=== PATIENT | male | born 1975 | race Two or more races ===

== ENCOUNTER 2019-09-21 17:28 | Emergency (ER) | payer MEDICAID ==
[~2019-09-21] VITALS: Ht 165.1 cm; Wt 68.9 kg
--- NOTE | 2019-09-21 17:42 | NUR ---
brenda, from [facility], sent by PMD for GT replacement, F14. PT IS NONVERBAL AND AT HIS BASELINE, PER EMS. SKIN WARM, DRY, INTACT. NO ACUTE DISTRESS NOTED. RR EVEN AND UNLABORED ON RA. MADE COMFORTABLE AND READY FOR EVAL.
[2019-09-21] MEDS ORDERED: BISA10SU11 RC (18:14)
[2019-09-21] MEDS ORDERED: ATOR20TA GT (18:14)
[2019-09-21] MEDS ORDERED: MAGN24002 GT (18:14)
[2019-09-21] MEDS ORDERED: ASCO500T9 GT (18:14)
[2019-09-21] MEDS ORDERED: ASPI-605 GT (18:14)
[2019-09-21] MEDS ORDERED: LEVE100S GT (18:14)
[2019-09-21] MEDS ORDERED: OMEP20CA15 GT (18:14)
[2019-09-21] MEDS ORDERED: ACET325T53 GT (18:14)
[2019-09-21] MEDS ORDERED: SENN-168 GT (18:14)
[2019-09-21] MEDS ORDERED: POTA20PA3 GT (18:14)
[2019-09-21] MEDS ORDERED: NA P133E RC (18:14)
[2019-09-21] MEDS ORDERED: [UNRECOGNIZED DRUG - CODE] GT (18:14)
[2019-09-21] MEDS ORDERED: MULT1TAB73 GT (18:14)
[2019-09-21] MEDS ORDERED: ENOX40DI SQ (18:14)
[2019-09-21] MEDS ORDERED: CRAN3875 GT (18:14)
--- NOTE | 2019-09-21 19:32 | NUR ---
PT RESTING COMFORTABLY IN BED. NO ACUTE DISTRESS NOTED. VSS. WILL CONT TO MONITOR.
[2019-09-21] MEDS ORDERED: DIATR MEGLU/DIATRIZOATE SODIUM 30 ML BOTTLE (GASTROGRAPHIN) ONE (19:49)
--- NOTE | 2019-09-21 21:17 | NUR ---
PT UP FOR DISCHARGE. WILL CALL FOR TRANSPORT
--- NOTE | 2019-09-21 21:24 | NUR ---
CALLED STEVE FOR S TRANSPORT TO [facility] ETA [id number]
--- NOTE | 2019-09-21 21:54 | NUR ---
REPORT GIVEN TO [facility][id number]. NOTIFIED FACILITY OF TRANSPORT
[2019-09-21 21:58] VITALS: BP 108/68
== END 2019-09-21 21:58 ==
LOC: ER 17:30
DX: K94.23 Gastrostomy malfunction (principal); R13.10 Dysphagia, unspecified; G40.909 Epilepsy, unspecified, not intractable, without status epilepticus; K21.9 Gastro-esophageal reflux disease without esophagitis; Z79.82 Long term (current) use of aspirin; Z79.899 Other long term (current) drug therapy
CPT/HCPCS: 43762; 74018; 99285; Q9963

== ENCOUNTER 2021-01-21 11:16 | Inpatient (IN) | payer BC, MEDICAID ==
[~2021-01-21] VITALS: Ht 172.7 cm; Wt 63.0 kg
[~2021-01-21 11:16] MED LIST: ACET325T53 GT; ASCO-352 GT; ASPI-605 GT; ATOR20TA GT; BISA10SU11 RC; CRAN3875 GT; ENOX40DI SQ; LEVE100S GT; MAGN24002 GT; MULT-754 GT; NA P133E RC; OMEP20CA15 GT; POTA20PA3 GT; SENN-261 GT; [UNRECOGNIZED DRUG - CODE] GT
--- NOTE | 2021-01-21 11:36 | NUR ---
JULIEN FROM [facility] C/O L HIP AND L ELBOW PAIN/LAC. S/P UNWITNESSED FALL. THE PATIENT RATES PAIN 10/10. NO APPARENT DEFORMITY NOTED. IN ROOM AIR AND DENIES SOB. RESPIRATION REGULAR AND UNLABORED. WILL CONTINUE TO MONITOR THE PATIENT.
[2021-01-21] MEDS ORDERED: ACET-2605 GT (11:44)
[2021-01-21] MEDS ORDERED: LANS30CA54 GT (11:44)
[2021-01-21] MEDS ORDERED: DOCU-141 GT (11:44)
[2021-01-21] MEDS ORDERED: CRAN3875 GT (11:44)
[2021-01-21] MEDS ORDERED: LACT-209 GT (11:46)
--- NOTE | 2021-01-21 11:58 | NUR ---
the patient is taken to ct
--- NOTE | 2021-01-21 12:15 | NUR ---
the patient is back from ct
[2021-01-21 13:36] LABS: BASOPHILS % (AUTO) 0.3 % (0.0-2.0); EOSINOPHILS % (AUTO) 0.1 % (0.0-6.0); HEMATOCRIT 38 % (39-51); HEMOGLOBIN 13.1 g/dL (13.5-17.5); LYMPHOCYTES # (AUTO) 0.8 K/uL (0.8-4.8); LYMPHOCYTES % (AUTO) 7.9 % (20.0-44.0); MEAN CORPUSCULAR HGB CONC 34 g/dl (31.0-36.0); MEAN CORPUSCULAR VOLUME 94 fL (80-96); MONOCYTES # (AUTO) 0.6 K/uL (0.1-1.30); MONOCYTES % (AUTO) 6.2 % (2.0-12.0); NEUTROPHILS # (AUTO) 8.8 K/uL (1.8-8.9); NEUTROPHILS % (AUTO) 85.5 % (43.0-81.0); PLATELET COUNT (AUTO) 109 K/uL (150-450); RED BLOOD CELL COUNT(AUTO) 4.05 MIL/uL (4.5-6.0); WHITE BLOOD COUNT (AUTO) 10.4 K/uL (4.3-11.0)
[2021-01-21 13:45] LABS: CALCIUM, SERUM 9.1 mg/dL (8.5-10.1); CREATININE 0.7 mg/dL (0.6-1.3)
--- NOTE | 2021-01-21 14:51 | NUR ---
BED ASSIGNMENT 105
--- NOTE | 2021-01-21 14:52 | NUR ---
Report given to nurse Andrea
--- NOTE | 2021-01-21 15:23 | NUR ---
The patient is transfered to assigned room in stable condition and per policy.
[2021-01-21] MEDS ORDERED: JEVITY 1.2 CAL 1,000 ML BOTTLE GT SCH (15:30)
[2021-01-21] MEDS ORDERED: ONDANSETRON HCL/PF 4 MG/2 ML VIAL IVP PRN (15:30)
[2021-01-21] MEDS ORDERED: MORPHINE SULFATE INJ 2 MG/ML DISP.SYRIN IV PRN (15:30)
[2021-01-21] MEDS ORDERED: BISACODYL SUPP (10 MG) 10 MG/SUPP.RECT SUPP.RECT RC PRN (15:30)
[2021-01-21] MEDS ORDERED: ACETAMINOPHEN 650 MG/SUPP.RECT RC PRN (15:30)
[2021-01-21] MEDS: PANTOPRAZOLE 40 MG VIAL IV SCH (15:30)
[2021-01-21] MEDS ORDERED: Z GUARD REMEDY 2 OZ OINT TP PRN (15:30)
[2021-01-21] MEDS: ENOXAPARIN SODIUM 40 MG/0.4 ML DISP.SYRIN SQ SCH (16:00)
[2021-01-21] MEDS ORDERED: LEVETIRACETAM (500MG) 1,000 MG in IV NS 0.9% 100 ML IV SCH (16:00)
[2021-01-21] MEDS ORDERED: JEVITY 1.2 CAL 1,000 ML BOTTLE GT PRN (19:30)
[2021-01-21] MEDS: KEPPRA 1000 MG in IV NS 100 ML IV SCH (19:48)
--- NOTE | 2021-01-21 19:49 | NUR ---
MS RN Notes Patient was seen awake in bed resting. Patient is alert and oriented x1. Patient's on room air with no respiratory distress noted. Patient has an IV access on his right hand gauge #20. Patient's in no acute distress at this time. Safety measures in place: Bed locked, bed alarm on, side rails up X3, and call light within reach of the patient. Will continue to monitor the patient.
[2021-01-21 20:00] VITALS: BP 101/62
[2021-01-21] MEDS: ATORVASTATIN 10 MG TABLET GT SCH (21:08)
[2021-01-22] MEDS: IV D5/ 0.9% NACL 1,000 ML IV PRN ×2 (00:20→12:39)
[2021-01-22 06:32] LABS: BASOPHILS % (AUTO) 0.3 % (0.0-2.0); EOSINOPHILS % (AUTO) 1.5 % (0.0-6.0); HEMATOCRIT 36 % (39-51); HEMOGLOBIN 12.5 g/dL (13.5-17.5); LYMPHOCYTES # (AUTO) 1.4 K/uL (0.8-4.8); MEAN CORPUSCULAR HGB CONC 35 g/dl (31.0-36.0); MEAN CORPUSCULAR VOLUME 93 fL (80-96); MONOCYTES # (AUTO) 0.8 K/uL (0.1-1.30); NEUTROPHILS # (AUTO) 4.8 K/uL (1.8-8.9); NEUTROPHILS % (AUTO) 67.2 % (43.0-81.0); PLATELET COUNT (AUTO) 97 K/uL (150-450); WHITE BLOOD COUNT (AUTO) 7.1 K/uL (4.3-11.0)
[2021-01-22 06:47] LABS: THYROID STIMULATING HORMONE 1.153 uIU/mL (0.358-3.74)
[2021-01-22 06:49] LABS: CALCIUM, SERUM 8.9 mg/dL (8.5-10.1); CREATININE 0.6 mg/dL (0.6-1.3); PHOSPHORUS 2.8 mg/dL (2.5-4.9); POTASSIUM 3.6 mmol/L (3.5-5.1)
--- NOTE | 2021-01-22 07:02 | NUR ---
MS RN Notes Patient was seen awake in bed resting. Patient is alert and oriented x1. Patient's on room air with no respiratory distress noted. Patient has an IV access on his left hand gauge #22 which is currently running D5NS at 75ml/hr. Patient's in no acute distress at this time. Safety measures in place: Bed locked, bed alarm on, side rails up X3, bilateral soft wrist restraints applied to the patient's wrists, and call light within reach of the patient. Will endorse care to the day shift nurse.
--- NOTE | 2021-01-22 07:52 | NUR ---
RN NOTES RECEIVED PT RESTING , ASLEEP IN BED WITH NO SIGNS OF ANY ACUTE DISTRESS. HOB KEPT ELEVATED, ASPIRATION PRECAUTION OBSERVED. GT FEEDING WELL TOLERATED . RESTRAINTS IN PLACE; SKIN AND CIRCULATION WNL. SAFETY ENSURED, CALL LIGHT WITHIN REACH. IV ACCESS IN PLACE WITH FLUIDS INFUSING.
[2021-01-22 08:00] VITALS: BP 99/64
[2021-01-22] MEDS: DOCUSATE SODIUM LIQ 100 MG/10 ML UDC GT SCH (08:43)
[2021-01-22] MEDS: KEPPRA 1000 MG in IV NS 100 ML IV SCH (08:43)
[2021-01-22] MEDS: PANTOPRAZOLE 40 MG VIAL IV SCH (08:43)
[2021-01-22] MEDS: ASCORBIC ACID 500 MG TABLET GT SCH (08:44)
[2021-01-22] MEDS: MULTIVITAMINS,THERAGRAN 1 UDTAB TABLET GT SCH (08:44)
[2021-01-22] MEDS: ASPIRIN 81 MG TAB.CHEW GT SCH (08:44)
--- NOTE | 2021-01-22 14:17 | NUR ---
rn notes CT order clarified with Dr Marcelino, pt will have Ct without contrast. also informed Dr Marcelino that pt is cleared by /Dr Carrasquillo and per Jose Luis pt can go to surgery without MRI done
[2021-01-22] MEDS: ENOXAPARIN SODIUM 40 MG/0.4 ML DISP.SYRIN SQ SCH (15:21)
--- NOTE | 2021-01-22 15:36 | NUR ---
rn notes lovenox scheduled dose verified with coal cutting machine operator faby and said okay to give as witnessed by charge out clerk Amy B
[2021-01-22 16:00] VITALS: BP 106/69
--- NOTE | 2021-01-22 17:55 | NUR ---
rn closing notes pt awake in bed; verbally responsive and no signs of any distress. c/o left hip discomfort only upon movement. remains on restraints for safety; released at intervals with rom done; skin and circulation wnl. repositioned for comfort and as tolerated. safety ensured at all times. gtf well tolerated. unable to reach for planned surgical consent; will endorse for f/up.
--- NOTE | 2021-01-22 19:23 | NUR ---
rn notes endorsed pt to next shift rn in stable condition, endorsed plan for surgery, consent f/up and to hold feeding at wi. skin and circulation wnl. endorsed for continuity of care
[2021-01-22] MEDS: LEVETIRACETAM SOL (5 ML) 100 MG/ML UDC GT SCH (22:10)
[2021-01-22] MEDS: ATORVASTATIN 10 MG TABLET GT SCH (22:11)
[2021-01-23] MEDS: IV D5/ 0.9% NACL 1,000 ML IV PRN ×2 (03:32→21:30)
--- NOTE | 2021-01-23 03:39 | NUR ---
patient to have surgrey today consent need to be sign patient with wrist restraints on both wrist bed in low position lite on in room patient has gt. clamped and flushed midnight. patient has lt. fx femur chest x ray done 2129 . patient alert x1 given morphine 4 mg 2211 patient to sleep after medicated. has d5ns infusing at 75 hr no signs of seizures.patient is incont. of urine. patient is covid pending.
--- NOTE | 2021-01-23 03:48 | NUR ---
patient has left femur [facility]x. [facility]
[2021-01-23 06:27] LABS: BASOPHILS % (AUTO) 0.4 % (0.0-2.0); EOSINOPHILS % (AUTO) 4.5 % (0.0-6.0); HEMATOCRIT 31 % (39-51); HEMOGLOBIN 10.9 g/dL (13.5-17.5); LYMPHOCYTES # (AUTO) 1.8 K/uL (0.8-4.8); LYMPHOCYTES % (AUTO) 28.7 % (20.0-44.0); MEAN CORPUSCULAR HGB CONC 35 g/dl (31.0-36.0); MEAN CORPUSCULAR VOLUME 95 fL (80-96); MONOCYTES # (AUTO) 0.8 K/uL (0.1-1.30); MONOCYTES % (AUTO) 13.2 % (2.0-12.0); NEUTROPHILS # (AUTO) 3.3 K/uL (1.8-8.9); NEUTROPHILS % (AUTO) 53.2 % (43.0-81.0); PLATELET COUNT (AUTO) 91 K/uL (150-450); RED BLOOD CELL COUNT(AUTO) 3.25 MIL/uL (4.5-6.0); WHITE BLOOD COUNT (AUTO) 6.1 K/uL (4.3-11.0)
[2021-01-23 07:14] LABS: CREATININE 0.6 mg/dL (0.6-1.3); POTASSIUM 3.5 mmol/L (3.5-5.1)
--- NOTE | 2021-01-23 07:35 | NUR ---
MS RN OPENING NOTES RECEIVED PATIENT IN BED, ASLEEP. PATIENT IS ON ROOM AIR, BREATHING EVEN AND UNLABORED, NO SOB NOTED. NO S/S OF PAIN SUCH FACIAL GRIMACING, MOANING OR GUARDING. IV ACCESS ON LFA G #22. G-TUBE IN PLACE BUT FEEDING IS STOPPED DUE TO DAY SURGERY AND PATIENT BEING NPO. SAFETY PRECAUTIONS IN PLACE; BED IN LOW POSITION AND LOCKED, RAILS UP X2, CALL LIGHT WITHIN REACH. WILL CONTINUE TO MONITOR PATIENT.
[2021-01-23] MEDS: LEVETIRACETAM SOL (5 ML) 100 MG/ML UDC GT SCH ×3 (08:40→21:29)
[2021-01-23] MEDS: ASCORBIC ACID 500 MG TABLET GT SCH (08:40)
[2021-01-23] MEDS: MULTIVITAMINS,THERAGRAN 1 UDTAB TABLET GT SCH (08:40)
[2021-01-23] MEDS: DOCUSATE SODIUM LIQ 100 MG/10 ML UDC GT SCH (08:40)
[2021-01-23] MEDS: ASPIRIN 81 MG TAB.CHEW GT SCH (08:40)
[2021-01-23] MEDS: PANTOPRAZOLE 40 MG/PACK PACK GT SCH (08:40)
--- NOTE | 2021-01-23 08:50 | NUR ---
MS RN NOTES CALLED PATIENT AND OBTAINED CONSENT FOR PROCEDURE, ANESTHESIA AND BLOOD TRANSFUSION. CHARGE NURSE A SECOND WITNESS FOR A TELEPHONE CONSENT.
[2021-01-23] MEDS ORDERED: ANESTHESIA TRAY IN PYXIS 1 EA TRAY MC ONE (13:39)
[2021-01-23] MEDS ORDERED: FENTANYL PF 100MCG/2ML AMPUL ONE (14:25)
[2021-01-23] MEDS ORDERED: CEFAZOLIN 2 GM in IV D5W 100 ML IV SCH (15:30)
[2021-01-23] MEDS ORDERED: VANCOMYCIN 1 GM in IV D5W 250 ML IV SCH (15:30)
[2021-01-23] MEDS ORDERED: LIDOCAINE HCL/MPF 1% 30 ML VIAL IJ ONE (15:34)
[2021-01-23] MEDS ORDERED: BUPIVACAINE MPF 0.5% W/EPI INJ 30 ML VIAL ONE (15:34)
--- NOTE | 2021-01-23 15:39 | NUR ---
MS RN NOTES PATIENT LEFT FOR SURGERY
[2021-01-23] MEDS ORDERED: VANCOMYCIN 1 GM VIAL ONE (15:42)
[2021-01-23] MEDS ORDERED: TRANEXAMIC ACID 1,000 MG in IV NS 0.9% 100 ML IV ONE (16:00)
[2021-01-23] MEDS: ENOXAPARIN SODIUM 40 MG/0.4 ML DISP.SYRIN SQ SCH (16:00)
--- NOTE | 2021-01-23 19:08 | NUR ---
RN NOTE PATIENT CAME BACK FROM OR FOR S/P LEFT HIP IM RODDING. SURGICAL DRESSING CLEAN DRY AND INTACT. NO SIGNS OF PAIN OR DISCOMFORT NOTED. PT ALERT. NO SIGNS OF DISTRESS NOTED, O2 APPLIED FOR COMFORT SATING 98 %. GT INTACT. IV ON LHAND PATENT AND INTACT. NOTIFIED CHARGE NURSE FOR NEW ORDERS. WILL CONTINUE TO MONITOR. ALL SAFETY MEASURES IN PLACE.
--- NOTE | 2021-01-23 19:27 | NUR ---
MS RN NOTES PATIENT RETURNED FROM SURGERY. REPORT FOR DENA WAS ENDORSED TO TEACHER LEARNING DISABLED NURSE. OR NURSE GAVE REPORT TO MAGDALENA LEE.
[2021-01-23 20:00] VITALS: BP 113/68
[2021-01-23] MEDS: ATORVASTATIN 10 MG TABLET GT SCH (21:30)
[2021-01-23] MEDS: CEFAZOLIN 2 GM in IV D5W 100 ML IV SCH (23:28)
[2021-01-24] MEDS: VANCOMYCIN 1 GM in IV D5W 250ml IV SCH ×2 (00:19→09:29)
[2021-01-24] MEDS: MORPHINE SULFATE INJ 2 MG/ML DISP.SYRIN IV PRN ×2 (01:51→16:30)
--- NOTE | 2021-01-24 01:52 | NUR ---
RN NOTE NOTED PT FACIAL GRIMACING AND GRASPING LEFT LEG AND VERBALIZES PAIN. MORPHINE IV GIVEN ORDERED. WILL CONTINUE TO MONITOR.
[2021-01-24 04:00] VITALS: BP 107/63
[2021-01-24 06:27] LABS: BASOPHILS % (AUTO) 0.1 % (0.0-2.0); EOSINOPHILS % (AUTO) 0.9 % (0.0-6.0); HEMATOCRIT 30 % (39-51); HEMOGLOBIN 10.5 g/dL (13.5-17.5); LYMPHOCYTES # (AUTO) 1.1 K/uL (0.8-4.8); LYMPHOCYTES % (AUTO) 14.1 % (20.0-44.0); MEAN CORPUSCULAR HGB CONC 36 g/dl (31.0-36.0); MEAN CORPUSCULAR VOLUME 93 fL (80-96); MONOCYTES % (AUTO) 13.4 % (2.0-12.0); NEUTROPHILS # (AUTO) 5.5 K/uL (1.8-8.9); NEUTROPHILS % (AUTO) 71.5 % (43.0-81.0); PLATELET COUNT (AUTO) 98 K/uL (150-450); RED BLOOD CELL COUNT(AUTO) 3.18 MIL/uL (4.5-6.0); WHITE BLOOD COUNT (AUTO) 7.7 K/uL (4.3-11.0)
[2021-01-24 06:44] LABS: CALCIUM, SERUM 8.1 mg/dL (8.5-10.1); CREATININE 0.6 mg/dL (0.6-1.3); POTASSIUM 3.5 mmol/L (3.5-5.1)
--- NOTE | 2021-01-24 06:47 | NUR ---
RN NOTE PT SLEEPING, AROUSES EASILY. NO SOB NOTED. TOLERATING ROOM AIR, O2 SAT AT 98 %. GT FEEDING STARTED, TOLERATING. NO RESIDUALS NOTED. KEPT HOB ELEVATED. SURGICAL SITE, DRESSING CLEAN DRY AND INTACT. CONTINUE ON IVFLUIDS OF D5NS. NO SIGNS OF INFILTRATION NOTED. WILL ENDORSE TO NEXT SHIFT NURSE FOR DENA.
--- NOTE | 2021-01-24 07:30 | NUR ---
RN OPENING NOTES Patient was received in bed on room air with 02 saturation of 98%. No c/o pain or discomfort. Patient is alert and responsive. HOB kept elevated. on gtube feedings ruben well. Will continue to monitor. Call light within reach.
[2021-01-24] MEDS: CEFAZOLIN 2 GM in IV D5W 100 ML IV SCH (07:48)
[2021-01-24 08:00] VITALS: BP 103/68
[2021-01-24] MEDS ORDERED: JEVITY 1.2 CAL 1,000 ML BOTTLE GT SCH (10:30)
[2021-01-24] MEDS: ASPIRIN 81 MG TAB.CHEW GT SCH (10:46)
[2021-01-24] MEDS: LEVETIRACETAM SOL (5 ML) 100 MG/ML UDC GT SCH (10:46)
[2021-01-24] MEDS: ASCORBIC ACID 500 MG TABLET GT SCH (10:46)
[2021-01-24] MEDS: DOCUSATE SODIUM LIQ 100 MG/10 ML UDC GT SCH (10:46)
[2021-01-24] MEDS: MULTIVITAMINS,THERAGRAN 1 UDTAB TABLET GT SCH (10:46)
[2021-01-24] MEDS: PANTOPRAZOLE 40 MG/PACK PACK GT SCH (10:47)
[2021-01-24] MEDS ORDERED: HYDR-4275 PO (13:06)
[2021-01-24] MEDS ORDERED: ENOX40DI SQ (13:09)
[2021-01-24] MEDS ORDERED: HYDR-3972 PO (13:40)
--- NOTE | 2021-01-24 16:42 | NUR ---
Patient was discharged to SNF at apprx 4:30 pm in good stable condition. Patient noted with grimacing and moaning during movement while preparing for transfer. Vitals assessed, 102/67, 86, 17, 98.1 ,02 sat of 98% room air. PRN pain medication given.Patient in good stable condition. Report previously called in to [facility] and informed regarding CT of Head and Neuro follow up. Patient left the facility in good stable condition. G tube intact and noted with abdominal binder. Paramedics aware regarding patient's tendency to pull on tubes.
[2021-01-24] MEDS ORDERED: ENOXAPARIN SODIUM 40 MG/0.4 ML DISP.SYRIN SQ SCH (17:00)
== END 2021-01-24 16:30 | DRG 480 ==
LOC: ER 11:24 → MEDSG1 14:46
PROVIDERS: ADMIT Nurse Practitioner Acute Care; ATTEND Internal Medicine
PROC: 0QS706Z Reposition Left Upper Femur with Intramedullary Internal Fixation Device, Open Approach (ICD-10-PCS; principal; 2021-01-23)
DX: S72.142A Displaced intertrochanteric fracture of left femur, initial encounter for closed fracture (principal); R53.2 Functional quadriplegia; N39.0 Urinary tract infection, site not specified; G93.40 Encephalopathy, unspecified; G91.0 Communicating hydrocephalus; R13.10 Dysphagia, unspecified; Z87.820 Personal history of traumatic brain injury; K21.9 Gastro-esophageal reflux disease without esophagitis; Y92.129 Unspecified place in nursing home as the place of occurrence of the external cause; S51.019A Laceration without foreign body of unspecified elbow, initial encounter; Z74.01 Bed confinement status; R26.9 Unspecified abnormalities of gait and mobility; Z93.1 Gastrostomy status; E78.5 Hyperlipidemia, unspecified; D64.9 Anemia, unspecified; Z79.82 Long term (current) use of aspirin; Z79.899 Other long term (current) drug therapy; G93.89 Other specified disorders of brain; Z98.890 Other specified postprocedural states; Z79.01 Long term (current) use of anticoagulants; W06.XXXA Fall from bed, initial encounter
CPT/HCPCS: 36415; 70450-TC; 70551-TC; 71045-TC; 72125-TC; 73020; 73080-TC; 73502; 73552; 73700-TC; 80048-TC; 80061-TC; 82550-TC; 83735-TC; 84100-TC; 84443-TC; 85025-TC; 85610-TC; 85730-TC; 86850-TC; 87081-TC; 93307-TC; 97112-TC; 97530-TC; A4217; A6209; A6253; C1713; C9113; C9803; G0378; J0690; J1650; J1953; J2270; J2405; J2704; J3010; J3370; J3490; J7030; J7042; J7050; J7060; U0003

== ENCOUNTER 2022-11-01 20:10 | Emergency (ER) | payer MEDICARE, OTHER ==
[~2022-11-01] VITALS: Ht 167.6 cm; Wt 54.4 kg
[~2022-11-01 20:10] MED LIST changes: +ACET-2605 GT; -ACET325T53 GT; +DOCU-141 GT; +HYDR-3972 PO; +LACT-209 GT; +LANS30CA54 GT; -MAGN24002 GT; -NA P133E RC; -OMEP20CA15 GT; -POTA20PA3 GT; -SENN-261 GT; -[UNRECOGNIZED DRUG - CODE] GT
--- NOTE | 2022-11-01 20:30 | NUR ---
PT JULIEN FROM [facility] FOR GTUBE REINSERTION. PT IS AO X 1, BREATHING UNLABORED, STABLE ON RA.GTUBE NOTED IN PLACE WITH ITS TIP CUT OFF. PT ATTACHED TO MONITOR AND PULSE OX. AWAITING MD FERNANDO
--- NOTE | 2022-11-01 20:35 | NUR ---
GTUBE 16 FR REINSERTED BY MD AT BEDSIDE, POSITIVE PLACEMENT WAS NOTED.
[2022-11-01] MEDS ORDERED: DIATR MEGLU/DIATRIZOATE SODIUM 30 ML BOTTLE (GASTROGRAPHIN) ONE (20:42)
--- NOTE | 2022-11-01 20:47 | NUR ---
KATHARINE AT BEDSIDE FOR XRAY
--- NOTE | 2022-11-01 21:15 | NUR ---
[facility] ETA: 30-45 MIN
--- NOTE | 2022-11-01 21:46 | NUR ---
[facility] AT BED SIDE TO MALARIOLOGIST THE PT
--- NOTE | 2022-11-01 21:47 | NUR ---
MAGDALENA KING WAS NOTIFIED THAT IS COMING.
--- NOTE | 2022-11-01 21:49 | NUR ---
[facility] 235 AT BEDSIDE FOR PT TRANSPORT BACK TO FACILITY. REPORT GIVEN. PT IS IN STABLE CONDITION.
[2022-11-01 21:54] VITALS: BP 105/64
== END 2022-11-01 21:55 | disposition home or self-care (01) ==
LOC: ER 20:23
DX: K94.23 Gastrostomy malfunction (principal); Z79.899 Other long term (current) drug therapy
CPT/HCPCS: 99284; 43762; Q9963; 74018

== ENCOUNTER 2022-11-03 14:00 | Inpatient (IN) | payer MEDICARE, OTHER ==
[~2022-11-03] VITALS: Ht 172.7 cm; Wt 54.9 kg
--- NOTE | 2022-11-03 14:00 | NUR ---
RECIVED PT 47 YRS MALE CAME BY EMT AMBULANCE FROM [facility] PT PULL OUT GT AT 5 AM TODAY PT AWAKE AND CONFUSED FOR GT REPLACEMENT
--- NOTE | 2022-11-03 14:05 | NUR ---
SEEN BY DR. MCLAIN
--- NOTE | 2022-11-03 14:15 | NUR ---
SPOOK WITH BRENDA ASSET PROTECTION SPECIALIST IN SNF
--- NOTE | 2022-11-03 14:15 | NUR ---
CALLED [facility] [phone] SIZE FR 16 AND PULL OUT AT 4-5AM THIS MORNING
--- NOTE | 2022-11-03 14:20 | NUR ---
DR. MCLAIN AND DR. KNOX TRY GT SITE IS CLOSED
[2022-11-03] MEDS ORDERED: CLON0.5T4 GT (14:40)
[2022-11-03] MEDS ORDERED: FAMO20TA8 GT (14:40)
[2022-11-03] MEDS ORDERED: ACET-868 GT (14:40)
[2022-11-03] MEDS ORDERED: CARB200T GT (14:40)
[2022-11-03] MEDS ORDERED: MELA3TAB41 GT (14:40)
[2022-11-03] MEDS ORDERED: DIVA250T4 GT (14:40)
[2022-11-03] MEDS ORDERED: ONDA4TAB5 GT (14:40)
[2022-11-03] MEDS ORDERED: CHLO50TA24 GT (14:40)
[2022-11-03] MEDS ORDERED: DOCU50LI GT (14:40)
[2022-11-03] MEDS ORDERED: HYDR-4303 GT (14:41)
[2022-11-03] MEDS ORDERED: MAG30ORA GT (14:41)
[2022-11-03 15:31] LABS: BASOPHILS % (AUTO) 0.3 % (0.0-2.0); EOSINOPHILS % (AUTO) 0.9 % (0.0-6.0); HEMATOCRIT 44 % (39-51); HEMOGLOBIN 14.6 g/dL (13.5-17.5); LYMPHOCYTES # (AUTO) 2.4 K/uL (0.8-4.8); LYMPHOCYTES % (AUTO) 41.2 % (20.0-44.0); MEAN CORPUSCULAR HGB CONC 33 g/dl (31.0-36.0); MEAN CORPUSCULAR VOLUME 93 fL (80-96); MONOCYTES # (AUTO) 0.3 K/uL (0.1-1.30); MONOCYTES % (AUTO) 5.3 % (2.0-12.0); NEUTROPHILS # (AUTO) 3.1 K/uL (1.8-8.9); NEUTROPHILS % (AUTO) 52.3 % (43.0-81.0); PLATELET COUNT (AUTO) 125 K/uL (150-450); RED BLOOD CELL COUNT(AUTO) 4.72 MIL/uL (4.5-6.0); WHITE BLOOD COUNT (AUTO) 5.8 K/uL (4.3-11.0)
[2022-11-03 15:43] LABS: CALCIUM, SERUM 9.3 mg/dL (8.5-10.1); CREATININE 0.9 mg/dL (0.6-1.3); POTASSIUM 3.5 mmol/L (3.5-5.1)
--- NOTE | 2022-11-03 16:45 | NUR ---
NOTIFIED NURSING SUP FOR MED SURG,
[2022-11-03] MEDS ORDERED: ACETAMINOPHEN 650 MG/SUPP.RECT RC PRN (17:30)
[2022-11-03] MEDS ORDERED: LORAZEPAM INJ 2 MG/ML VIAL IV PRN (17:30)
[2022-11-03] MEDS ORDERED: ONDANSETRON HCL/PF 4 MG/2 ML VIAL IVP PRN (17:30)
[2022-11-03] MEDS ORDERED: Z GUARD REMEDY 4 OZ OINT TP PRN (17:30)
--- NOTE | 2022-11-03 17:35 | NUR ---
Hand off to NAEL NICHOLS TO ROOM 311-2 STABLE VS AND CONDITION
[2022-11-03] MEDS: IV D5W 1,000 ML IV PRN (18:20)
[2022-11-03 18:27] VITALS: BP 95/66
[2022-11-03] MEDS: VALPROATE 250 MG in IV D5W 100 ML IV SCH (18:41)
--- NOTE | 2022-11-03 19:55 | NUR ---
QUALITY COMPLIANCE MANAGER NOTES ADMITTED A 47 YEAR OLD MALE FROM [facility] , ALERT X1 AND WITH UNCLEAR SPEECH, ANXIOUS AND CONFUSED AND SPITTING TO STAFF , CAME IN DUE GTUBE WAS PULLED OUT , DIAGNOSIS OF GT PLACEMENT AND DYSPHAGIA , NKA , ON MED SURG , INCONTINENT , BODY ASSESSMENT DONE AND PATIENT WITH NO SKIN BREAKDOWN , IV ACCESS ON THE LEFT UPPER ARM G #18 WITH D5W @75 CC/HOUR , CONSENT PROVIDED BY [facility] VIA PHONE WITH WITNESS MAGDALENA RAYGOZA , FOR EGD WITH PEG PROCEDURE , V/S TAKEN AND RECORDED . BP 99/66, RR 18 , P 66 , TEMP IS 100.3 , ON ROOM AIR WITH 99% SATURATION , NO SOB OR DISTRESS NOTED AND NO C/O OF PAIN AND DISCOMFORT, WITH BOTH SOFT RESTRAINT DUE TO PHYSICALLY AGGRESSIVE BEHAVIOR , BOTH SIDE RAILS UP X 3 , BED IN LOWEST POSITION AND WILL MONITOR FOR ANY CHANGES .
[2022-11-03 20:00] VITALS: BP 115/72
[2022-11-03] MEDS: LEVETIRACETAM (500MG) 1,000 MG in IV NS 0.9% 100 ML IV SCH (20:04)
[2022-11-03] MEDS: HEPARIN SODIUM, PORCINE 5000 UNITS/1 ML VIAL SQ SCH (21:00)
--- NOTE | 2022-11-03 22:32 | NUR ---
HEPARIN HELD TONIGHT, PER SENIOR FIREWALL ENGINEER ROSA ORDER, PEG TUBE PLACEMENT 11/04/22
[2022-11-04] MEDS: VALPROATE 250 MG in IV D5W 100 ML IV SCH ×2 (04:43→18:03)
[2022-11-04] MEDS: LEVETIRACETAM (500MG) 1,000 MG in IV NS 0.9% 100 ML IV SCH ×2 (05:36→19:09)
--- NOTE | 2022-11-04 06:28 | NUR ---
ALERT/ORIENTED X1, CONFUSED, ROOM AIR, NOT IN APPARENT PAIN, HOSTILE, AGGRESSIVE, SPITS, PULLING IV LINES, BILATERAL WRIST RESTRAINTS. NPO, D5W AT 75 ML/HR, FOR PEG TUBE REPLACEMENT, CONSENTS SIGNED BY , CHECKLIST IN CHART.
[2022-11-04 06:34] LABS: BASOPHILS % (AUTO) 0.3 % (0.0-2.0); EOSINOPHILS % (AUTO) 1.2 % (0.0-6.0); HEMATOCRIT 43 % (39-51); LYMPHOCYTES # (AUTO) 3.1 K/uL (0.8-4.8); LYMPHOCYTES % (AUTO) 47.3 % (20.0-44.0); MEAN CORPUSCULAR HGB CONC 33 g/dl (31.0-36.0); MEAN CORPUSCULAR VOLUME 96 fL (80-96); MONOCYTES # (AUTO) 0.5 K/uL (0.1-1.30); MONOCYTES % (AUTO) 7.8 % (2.0-12.0); NEUTROPHILS # (AUTO) 2.8 K/uL (1.8-8.9); NEUTROPHILS % (AUTO) 43.4 % (43.0-81.0); PLATELET COUNT (AUTO) 112 K/uL (150-450); WHITE BLOOD COUNT (AUTO) 6.5 K/uL (4.3-11.0)
[2022-11-04 06:49] LABS: CREATININE 0.7 mg/dL (0.6-1.3); MAGNESIUM 2.5 mg/dL (1.8-2.4); PHOSPHORUS 3.3 mg/dL (2.5-4.9); POTASSIUM 3.6 mmol/L (3.5-5.1)
--- NOTE | 2022-11-04 07:03 | NUR ---
MS RN OPENING NOTES RECEIVED PATIENT AWAKE IN BED, A/Ox1, EPISODES OF CONFUSION. ON ROOM AIR, NO S/S OF RESPIRATORY DISTRESS. IV ACCESS: DEBRA #18G RUNNING D5W @75ML/HR. INTACT AND PATENT. ON BILATERAL SOFT WRIST RESTRAINTS, SKIN INTACT, CIRCULATION WNL, PATIENT CURRENTLY SPITTING AT NURSES WHEN NEAR BY. INCONTINENT USES DIAPER. SKIN INTACT. SAFETY MEASURES IN PLACE: BED LOCKED AND IN LOWEST POSITION, HOB ELEVATED, CALL LIGHT WITHIN REACH, SIDE RAILS UPx3. WILL CONTINUE TO MONITOR.
[2022-11-04 08:00] VITALS: BP 97/75
[2022-11-04] MEDS: HEPARIN SODIUM, PORCINE 5000 UNITS/1 ML VIAL SQ SCH ×2 (08:53→21:00)
[2022-11-04] MEDS: PANTOPRAZOLE 40 MG VIAL IV SCH (08:53)
[2022-11-04] MEDS: IV D5W 1,000 ML IV PRN (08:54)
--- NOTE | 2022-11-04 09:50 | NUR ---
RN NOTES HOLDING HEPARIN FOR LOW PLATELETS AND POSSIBLE PEG PLACEMENT. MD NOTIFIED. WILL CONTINUE TO MONITOR.
[2022-11-04 16:11] VITALS: BP 98/60
[2022-11-04] MEDS: CEFTRIAXONE 1 G in IV D5W 50 ML IV SCH (17:23)
--- NOTE | 2022-11-04 18:41 | NUR ---
MS RN CLOSING NOTES PATIENT AWAKE IN BED, A/Ox1, EPISODES OF CONFUSION. STABLE ON ROOM AIR, NO S/S OF RESPIRATORY DISTRESS. IV ACCESS: DEBRA #18G RUNNING D5W @75ML/HR. INTACT AND PATENT. ON BILATERAL SOFT WRIST RESTRAINTS, SKIN INTACT, CIRCULATION WNL, PATIENT CURRENTLY SPITTING AT NURSES WHEN NEAR BY. INCONTINENT USES DIAPER. SKIN INTACT. SAFETY MEASURES MAINTAINED: BED LOCKED AND IN LOWEST POSITION, HOB ELEVATED, CALL LIGHT WITHIN REACH, SIDE RAILS UPx3. WILL ENDORSE TO NEXT SHIFT ANY DENA.
--- NOTE | 2022-11-04 19:00 | NUR ---
RN OPENING NOTE RECEIVED PT AWAKE IN BED. A/O X 1, CONFUSED. PT IS IN RA, TOLERATING WELL, BREATING EVEN AND UNLABORED @ THIS TIME. PT IV PRESENT IN LEFT UPPER ARM RUNNING D5W @75MLS/HR, PATENT, INTACT AND FLUSHES WELL W/ NO S & SX OF INFILTRATION @ SITE NOTED. PT CONDOM CATHETER IS IN PLACE WITH NO URINE OUTPUT. SAFETY MEASURE IS IN PLACE. BED IN LOWEST AND LOCKED POSITION. SIDE RAILS X 4. BEDSIDE TABLE AND CALL LIGHT IS EASY REACH. BED ALARM IS ON. WILL CONTINUE TO MONITOR PT ACCORDINGLY.
[2022-11-04 20:00] VITALS: BP 118/65
--- NOTE | 2022-11-04 21:00 | NUR ---
HOLDING HEPARIN FOR LOW PLATELETS AND POSSIBLE PEG PLACEMENT. NOTIFIED. WILL CONTINUE TO MONITOR.
[2022-11-05 01:14] VITALS: BP 118/65
[2022-11-05] MEDS: LEVETIRACETAM (500MG) 1,000 MG in IV NS 0.9% 100 ML IV SCH ×2 (04:46→20:25)
[2022-11-05] MEDS: VALPROATE 250 MG in IV D5W 100 ML IV SCH ×2 (05:28→20:48)
--- NOTE | 2022-11-05 06:39 | NUR ---
RN CLOSING NOTE PT IS ASLEEP AND RESTING COMFORTABLY IN BED. A/O X 1, CONFUSED. PT IS IN RA, W/ NO S & SX RESPIRATORY DISTRESS @ THIS TIME. PT IV PRESENT IN LEFT UPPER ARM RUNNING D5W @75MLS/HR, PATENT, INTACT AND FLUSHES WELL W/ NO S & SX OF INFILTRATION @ SITE NOTED. PT CONDOM CATHETER IS IN PLACE WITH NO URINE OUTPUT @ THIS TIME. PT IS KEPT CLEAN AND DRY. ADMINISTERED MEDICATION ACCORDINGLY PER MD'S ORDER SAFETY MEASURE IS IN PLACE. BED IN LOWEST AND LOCKED POSITION. SIDE RAILS X 4. BEDSIDE TABLE AND CALL LIGHT IS EASY REACH. BED ALARM IS ON. WILL ENDORSE PT TO THE NEXT SHIFT FOR DENA.
--- NOTE | 2022-11-05 07:22 | NUR ---
MS RN OPENING NOTE (DAY SHIFT) RECEIVED PATIENT AWAKE IN BED, A/O x 1, EPISODES OF CONFUSION. ON ROOM AIR, NO S/S OF RESPIRATORY DISTRESS. IV ACCESS: DEBRA #18G RUNNING D5W @75ML/HR. INTACT AND PATENT. ON BILATERAL SOFT WRIST RESTRAINTS, SKIN INTACT, CIRCULATION WNL, PATIENT CURRENTLY SPITTING AT NURSES WHEN NEAR BY. INCONTINENT USES DIAPER. SKIN INTACT. SAFETY MEASURES IN PLACE: BED LOCKED AND IN LOWEST POSITION, HOB ELEVATED, CALL LIGHT WITHIN REACH, SIDE RAILS UP x 3. WILL CONTINUE TO MONITOR AND CARE FOR PATIENT PER HOSPITALIST'S POC.
[2022-11-05 08:33] VITALS: BP 107/66
[2022-11-05 08:46] LABS: BASOPHILS % (AUTO) 0.3 % (0.0-2.0); EOSINOPHILS % (AUTO) 1.1 % (0.0-6.0); HEMATOCRIT 40 % (39-51); HEMOGLOBIN 13.3 g/dL (13.5-17.5); LYMPHOCYTES # (AUTO) 2.1 K/uL (0.8-4.8); LYMPHOCYTES % (AUTO) 34.9 % (20.0-44.0); MEAN CORPUSCULAR HGB CONC 34 g/dl (31.0-36.0); MEAN CORPUSCULAR VOLUME 92 fL (80-96); MONOCYTES # (AUTO) 0.3 K/uL (0.1-1.30); MONOCYTES % (AUTO) 5.6 % (2.0-12.0); NEUTROPHILS # (AUTO) 3.5 K/uL (1.8-8.9); NEUTROPHILS % (AUTO) 58.1 % (43.0-81.0); PLATELET COUNT (AUTO) 111 K/uL (150-450); RED BLOOD CELL COUNT(AUTO) 4.31 MIL/uL (4.5-6.0); WHITE BLOOD COUNT (AUTO) 6.1 K/uL (4.3-11.0)
[2022-11-05 09:08] LABS: CALCIUM, SERUM 8.6 mg/dL (8.5-10.1); CREATININE 0.7 mg/dL (0.6-1.3); MAGNESIUM 1.9 mg/dL (1.8-2.4); PHOSPHORUS 2.6 mg/dL (2.5-4.9); POTASSIUM 3.3 mmol/L (3.5-5.1)
[2022-11-05] MEDS: PANTOPRAZOLE 40 MG VIAL IV SCH (10:50)
[2022-11-05] MEDS: HEPARIN SODIUM, PORCINE 5000 UNITS/1 ML VIAL SQ SCH ×2 (10:55→21:00)
[2022-11-05 15:04] LABS: BILIRUBIN,URINE 1+ (NEGATIVE); COLOR,URINE YELLOW (YELLOW); LEUKOCYTE ESTERASE ,URINE NEGATIVE (NEGATIVE); NITRITE, URINE NEGATIVE (NEGATIVE); PROTEIN,URINE TRACE mg/dl (NEGATIVE); UGLUCOSE NEGATIVE (NEGATIVE)
[2022-11-05 16:07] VITALS: BP 94/59
[2022-11-05 16:54] LABS: BACTERIA,URINE None seen /HPF (None Seen); MUCUS,URINE Few /LPF (None Seen)
--- NOTE | 2022-11-05 18:49 | NUR ---
MS RN CLOSING NOTE (DAY SHIFT) PATIENT AWAKE IN BED, A/O x 1, RESTLESS AT TIMES WITH EPISODES OF CONFUSION. STABLE ON ROOM AIR, NO S/S OF RESPIRATORY DISTRESS. IV ACCESS: DEBRA #18G RUNNING D5W @75ML/HR. INTACT AND PATENT. ON BILATERAL SOFT WRIST RESTRAINTS, SKIN INTACT, CIRCULATION WNL, PATIENT CURRENTLY SPITTING AT NURSES WHEN NEAR BY. INCONTINENT USES DIAPER. SKIN INTACT. SAFETY MEASURES MAINTAINED: BED LOCKED AND IN LOWEST POSITION, HOB ELEVATED, CALL LIGHT WITHIN REACH, SIDE RAILS UP x 3. WILL ENDORSE TO LABORER MARINE TERMINAL RN FOR DENA.
[2022-11-05] MEDS: CEFTRIAXONE 1 G in IV D5W 50 ML IV SCH (19:24)
[2022-11-05] MEDS: IV D5W 1,000 ML IV PRN (19:25)
--- NOTE | 2022-11-05 19:45 | NUR ---
RN OPENING NOTE RECEIVED PT AWAKE, LYING IN BED. PT A/O X 1, CONFUSED. ON ROOM AIR, AND TOLERATING RA WELL, WITH BREATHING EVEN AND UNLABORED. IV ACCESS TO LEFT UPPER ARM RUNNING D5W @75MLS/HR, PATENT, INTACT AND FLUSHES WELL WITH NO S & SX OF INFILTRATION. SAFETY MEASURE IS IN PLACE. BED IN LOWEST AND LOCKED POSITION. SIDE RAILS X 4. BEDSIDE TABLE AND CALL LIGHT IS WITHIN EASY REACH. BED ALARM IS ON. WILL CONTINUE TO MONITOR PT ACCORDINGLY.
--- NOTE | 2022-11-05 21:00 | NUR ---
MS RN NOTE HEPARIN IS BEING HELD DUE TO PT WILL POSSIBLY HAVE PROCEDURE TOMORROW, AND LOW PLATELET LEVEL, 111. MD LEE CALLED, AND MADE AWARE.
[2022-11-05 21:22] VITALS: BP 98/64
[2022-11-06] MEDS: VALPROATE 250 MG in IV D5W 100 ML IV SCH ×2 (05:43→17:51)
--- NOTE | 2022-11-06 06:25 | NUR ---
RN CLOSING NOTE LEFT PT AWAKE, LYING IN BED. PT A/O X 1, CONFUSED. ON ROOM AIR, AND TOLERATING RA WELL, WITH BREATHING EVEN AND UNLABORED. IV ACCESS TO LEFT UPPER ARM RUNNING D5W @75MLS/HR, PATENT, INTACT AND FLUSHES WELL WITH NO S & SX OF INFILTRATION. PT HAD NO URINE OUTPUT. BLADDER SCAN DONE, PVR: 300 ML. MD LEE CALLED,AND MADE AWARE. NEW ORDER RECEIVED FOR STRAIGHT CATH. STRAIGHT CATH COMPLETED, 280 ML OF URINE OUT. SAFETY MEASURE IS IN PLACE. BED IN LOWEST AND LOCKED POSITION. SIDE RAILS X 4. BEDSIDE TABLE AND CALL LIGHT IS WITHIN EASY REACH. BED ALARM IS ON. WILL ENDORSE PT TO AM SHIFT NURSE FOR DENA.
[2022-11-06 07:27] LABS: BASOPHILS % (AUTO) 0.3 % (0.0-2.0); EOSINOPHILS % (AUTO) 1.3 % (0.0-6.0); HEMATOCRIT 38 % (39-51); HEMOGLOBIN 13.1 g/dL (13.5-17.5); LYMPHOCYTES # (AUTO) 2.6 K/uL (0.8-4.8); LYMPHOCYTES % (AUTO) 52.2 % (20.0-44.0); MEAN CORPUSCULAR HGB CONC 34 g/dl (31.0-36.0); MEAN CORPUSCULAR VOLUME 93 fL (80-96); MONOCYTES # (AUTO) 0.5 K/uL (0.1-1.30); NEUTROPHILS # (AUTO) 1.9 K/uL (1.8-8.9); NEUTROPHILS % (AUTO) 37.2 % (43.0-81.0); PLATELET COUNT (AUTO) 105 K/uL (150-450); RED BLOOD CELL COUNT(AUTO) 4.14 MIL/uL (4.5-6.0); WHITE BLOOD COUNT (AUTO) 5.1 K/uL (4.3-11.0)
--- NOTE | 2022-11-06 07:30 | NUR ---
RN OPENING NOTE RECEIVED PT AWAKE, . PT A/O X 1, CONFUSED. ON ROOM AIR, AND TOLERATING RA WELL, WITH NO SOB OR DISTRESS NOTED , NO S/S OF PAIN AND DISCOMFORT . IV ACCESS TO LEFT UPPER ARM RUNNING D5W @75MLS/HR ON GOING , SAFETY MEASURE IS IN PLACE. BED IN LOWEST AND LOCKED POSITION. SIDE RAILS X 4. BEDSIDE TABLE AND CALL LIGHT IS WITHIN EASY REACH. BED ALARM IS ON. WILL CONTINUE TO MONITOR PT ACCORDINGLY.
[2022-11-06 08:51] LABS: CALCIUM, SERUM 8.4 mg/dL (8.5-10.1); CREATININE 0.6 mg/dL (0.6-1.3); PHOSPHORUS 2.8 mg/dL (2.5-4.9); POTASSIUM 3.6 mmol/L (3.5-5.1)
[2022-11-06 09:00] VITALS: BP 100/66
[2022-11-06] MEDS ORDERED: PANTOPRAZOLE 40 MG/PACK PACK PO SCH (09:00)
[2022-11-06] MEDS: LEVETIRACETAM (500MG) 1,000 MG in IV NS 0.9% 100 ML IV SCH ×2 (09:16→20:19)
[2022-11-06] MEDS: HEPARIN SODIUM, PORCINE 5000 UNITS/1 ML VIAL SQ SCH ×2 (09:19→23:03)
[2022-11-06] MEDS: PANTOPRAZOLE 40 MG VIAL IV SCH (09:34)
[2022-11-06] MEDS: OLANZAPINE 10 MG VIAL IM SCH ×2 (10:52→17:40)
--- NOTE | 2022-11-06 12:30 | NUR ---
RN NOTES PATIENT CAME BACK FORM SURGERY S/P GT REPLACEMENT WITH ORDER TO RESUME PREVIOUS MEALS AND USE PEG FOR WATER AND MEDS IN HOURS , USE PEG FOR TUBE FEEDING TOMORROW . PATIENT AWAKE AND CONTINUE WITH MEDS ORDERED
--- NOTE | 2022-11-06 12:30 | NUR ---
RN NOTES PATIENT WAS CARE TECH BY STAFF FROM SURGERY FOR GT REPLACEMENT
[2022-11-06 16:00] VITALS: BP 119/86
[2022-11-06] MEDS: CEFTRIAXONE 1 G in IV D5W 50 ML IV SCH (16:11)
--- NOTE | 2022-11-06 19:37 | NUR ---
RN CLOSING NOTE RECEIVED PT AWAKE, . PT A/O X 1, CONFUSED. ON ROOM AIR, AND TOLERATING RA WELL, WITH NO SOB OR DISTRESS NOTED , NO S/S OF PAIN AND DISCOMFORT . IV ACCESS TO LEFT UPPER ARM RUNNING D5W @75MLS/HR ON GOING , ALL DUE MEDS ORDERED GIVEN , ON NEW PEG TUBE AND WATER FLUSH STARTED ORDERED , BOTH SOFT RESTRAINTS OORDERED , SAFETY MEASURE IS IN PLACE. BED IN LOWEST AND LOCKED POSITION. SIDE RAILS X 4. BEDSIDE TABLE AND CALL LIGHT IS WITHIN EASY REACH. BED ALARM IS ON. ENDORSED TO NEXT SHIFT .
--- NOTE | 2022-11-06 19:45 | NUR ---
MS RN OPENING NOTE RECEIVED PATIENT FROM SHEILA RN; A/O X 1, CONFUSED; STABLE ON ROOM AIR, AND TOLERATING WELL, WITH NO S/S OF SOB OR DISTRESS NOTED; WITH IV ACCESS AT LEFT UPPER ARM RUNNING D5W AT 75MLS/HR; S/P PEG TUBE REPLACEMENT; ON SOFT RESTRAINTS ORDERED; SAFETY MEASURE IS IN PLACE, BED LOCKED IN LOWEST POSITION, SIDE RAILS X 4, BEDSIDE TABLE AND CALL LIGHT IS WITHIN EASY REACH, BED ALARM IS ON; WILL CONTINUE TO MONITOR THROUGHOUT SHIFT
[2022-11-06 20:00] VITALS: BP 111/73
--- NOTE | 2022-11-06 20:30 | NUR ---
MS RN NOTE NOTED PATIENT'S PLATELET IS TRENDING DOWN. LATEST PLATELET WAS 105. INFORMED DR. GUTHRIE. AWAITING FOR RESPONSE Addendum: 11/06/22 at 2244 by ALVIN ESPINOZA RN PATIENT IS DUE FOR HEPARIN
--- NOTE | 2022-11-06 23:30 | NUR ---
MS RN NOTE LATE ADMINISTRATION OF HEPARIN BECAUSE CHARGE NURSE AND OTHER STAFF THOUGHT DR GUTHRIE IS THE ONCALL HOSPITALIST; CALLED [facility] AND INFORMED US THAT DR SHORT IS THE ONCALL; HEPARIN SQ ADMINISTERED, PER DR SHORT'S ORDER; CHARGE NURSE AWARE
[2022-11-07] MEDS: IV D5W 1,000 ML IV PRN (00:09)
[2022-11-07] MEDS: VALPROATE 250 MG in IV D5W 100 ML IV SCH (04:42)
[2022-11-07 06:44] LABS: CALCIUM, SERUM 8.5 mg/dL (8.5-10.1); CREATININE 0.7 mg/dL (0.6-1.3); MAGNESIUM 2.1 mg/dL (1.8-2.4); PHOSPHORUS 3.3 mg/dL (2.5-4.9); POTASSIUM 3.3 mmol/L (3.5-5.1)
--- NOTE | 2022-11-07 07:06 | NUR ---
MS RN OPENING NOTES RECEIVED PATIENT SLEEPING IN BED, A/Ox1, EPISODES OF CONFUSION. ON ROOM AIR, NO S/S OF RESPIRATORY DISTRESS. IV ACCESS DEBRA #18G RUNNING D5W @75 ML/HR, INTACT AND PATENT. NO S/S OF PAIN OR DISCOMFORT. HAS BILATERAL SOFT WRIST RESTRAINTS, SKIN INTACT AND CIRCULATION WNL. PATIENT HAS G-TUBE, NO FEEDING RUNNING AT THIS TIME. FLUSHING WELL. SKIN INTACT. SAFETY MEASURES IN PLACE: BED LOCKED AND IN LOWEST POSITION, HOB ELEVATED, CALL LIGHT WITHIN REACH, SIDE RAILS UPx3. WILL CONTINUE TO MONITOR.
--- NOTE | 2022-11-07 07:15 | NUR ---
MS RN CLOSING NOTE PATIENT RESTING IN BED, A/O X 1, CONFUSED; STABLE ON ROOM AIR, BREATHING EVENLY WITH NO S/S OF SOB OR DISTRESS NOTED; WITH IV ACCESS AT LEFT UPPER ARM RUNNING WELL WITH D5W AT 75MLS/HR; S/P PEG TUBE REPLACEMENT, WAS ABLE TO FLUSH WATER AT G TUBE 200CC Q6H; ON SOFT RESTRAINTS ORDERED, CHECKED CIRCULATION ACCORDINGLY; ADMINISTERED MEDICATIONS PRESCRIBED; PATIENT'S NEEDS ATTENDED; SAFETY MEASURES IS IN PLACE, BED LOCKED IN LOWEST POSITION, SIDE RAILS X 4, BEDSIDE TABLE AND CALL LIGHT IS WITHIN EASY REACH, BED ALARM IS ON; ENDORSED TO AM SHIFT NURSE FOR DENA.
[2022-11-07 07:54] LABS: BASOPHILS % (AUTO) 0.1 % (0.0-2.0); EOSINOPHILS % (AUTO) 1.1 % (0.0-6.0); HEMATOCRIT 39 % (39-51); HEMOGLOBIN 13.3 g/dL (13.5-17.5); MEAN CORPUSCULAR HGB CONC 34 g/dl (31.0-36.0); MEAN CORPUSCULAR VOLUME 91 fL (80-96); MONOCYTES # (AUTO) 0.5 K/uL (0.1-1.30); MONOCYTES % (AUTO) 6.6 % (2.0-12.0); NEUTROPHILS # (AUTO) 4.8 K/uL (1.8-8.9); NEUTROPHILS % (AUTO) 65.2 % (43.0-81.0); PLATELET COUNT (AUTO) 106 K/uL (150-450); RED BLOOD CELL COUNT(AUTO) 4.34 MIL/uL (4.5-6.0); WHITE BLOOD COUNT (AUTO) 7.3 K/uL (4.3-11.0)
[2022-11-07 08:00] VITALS: BP 105/54
[2022-11-07] MEDS: LEVETIRACETAM (500MG) 1,000 MG in IV NS 0.9% 100 ML IV SCH (09:00)
[2022-11-07] MEDS: PANTOPRAZOLE 40 MG VIAL IV SCH (09:27)
[2022-11-07] MEDS: HEPARIN SODIUM, PORCINE 5000 UNITS/1 ML VIAL SQ SCH (09:28)
[2022-11-07] MEDS ORDERED: OLANZAPINE 5 MG TABLET GT SCH (09:30)
[2022-11-07] MEDS: POTASSIUM CL. PREMIX PERIPHER. 50 ML IV SCH ×2 (10:28→11:34)
[2022-11-07] MEDS ORDERED: JEVITY 1.2 CAL 1,000 ML BOTTLE GT PRN (14:30)
--- NOTE | 2022-11-07 15:29 | NUR ---
RN NOTES PATIENT STARTED ON G-TUBE FEEDING TOLERATING WELL. NO S/S OF DISTRESS OR ABDOMINAL DISTENSION.
[2022-11-07] MEDS: CEFTRIAXONE 1 G in IV D5W 50 ML IV SCH (15:33)
[2022-11-07 16:00] VITALS: BP 95/60
--- NOTE | 2022-11-07 17:58 | NUR ---
GARBAGE COLLECTOR SUPERVISOR NOTES PATIENT D/C BACK TO SNF, REPORT GIVEN TO MAGDALENA VARGAS. PATIENT A/Ox1, CONFUSED AND OCCASIONALLY COMBATIVE. KHMER SPEAKING, ABLE TO BE REORIENTED. SPITS BUT MASK AND FACE MASK PROVIDED. PATIENT STABLE ON ROOM AIR, NO S/S OF RESPIRATORY DISTRESS. IV ACCESS REMOVED AND PRESSURE DRESSING APPLIED. PATIENT G-TUBE INTACT AND FLUSHING WELL. SKIN INTACT. PATIENT CONFUSED, UNABLE TO SIGN FORMS, FORMS SIGNED BY TWO RNs. PATIENT LEFT UNIT @1700, VIA GURNEY ACCOMPANIED BY TWO upper stitcher. CHARGE NURSE AND MADE AWARE OF DISCHARGE.
== END 2022-11-07 17:04 | DRG 394 ==
LOC: ER 14:06 → MED 17:04
PROVIDERS: ADMIT Nurse Practitioner Family; ATTEND Student in an Organized Health Care Education/Training Program
PROC: 0DH63UZ Insertion of Feeding Device into Stomach, Percutaneous Approach (ICD-10-PCS; principal; 2022-11-06)
DX: K94.23 Gastrostomy malfunction (principal); E87.0 Hyperosmolality and hypernatremia; G93.40 Encephalopathy, unspecified; Y84.8 Other medical procedures as the cause of abnormal reaction of the patient, or of later complication, without mention of misadventure at the time of the procedure; Y92.122 Bedroom in nursing home as the place of occurrence of the external cause; E86.0 Dehydration; R13.10 Dysphagia, unspecified; K29.70 Gastritis, unspecified, without bleeding; D64.9 Anemia, unspecified; E78.5 Hyperlipidemia, unspecified; G40.909 Epilepsy, unspecified, not intractable, without status epilepticus; F06.8 Other specified mental disorders due to known physiological condition; F20.9 Schizophrenia, unspecified
CPT/HCPCS: 36415; 43760; 71045-TC; 74018; 80048-TC; 81001; 83735-TC; 84100-TC; 85025-TC; 85730-TC; 87040-TC; 87081-TC; 87086-TC; A4223; A4349; C9113; C9803; G0378; J0696; J1644; J1953; J2704; J3480; J3490; J7030; J7042; J7060; J7070

== ENCOUNTER 2023-05-02 12:35 | Inpatient (IN) | payer MEDICARE, OTHER ==
[~2023-05-02] VITALS: Ht 182.9 cm; Wt 70.8 kg
[~2023-05-02 12:35] MED LIST changes: -ACET-2605 GT; +ACET650S11 RC; -ASCO-352 GT; -ASPI-605 GT; +ATOR10TA GT; -ATOR20TA GT; +CARB200T GT; +CHLO50TA24 GT; -CRAN3875 GT; +DIPH50VI18 IM; -DOCU-141 GT; -ENOX40DI SQ; +HALO5SYR IM; -HYDR-3972 PO; +HYOS0.1275 SL; -LACT-209 GT; +LACT-96 GT; -LANS30CA54 GT; -LEVE100S GT; +LORA2VIA11 IM; +MELA3TAB41 GT; +MORP20SO GT; -MULT-754 GT; +OLAN5TAB3 GT; +PROC25SU2 RC
[2023-05-02] MEDS ORDERED: DIVA125C2 GT (14:21)
[2023-05-02 14:47] LABS: CALCIUM, SERUM 9.1 mg/dL (8.5-10.1); CREATININE 0.7 mg/dL (0.6-1.3); POTASSIUM 4.3 mmol/L (3.5-5.1)
[2023-05-02 15:15] LABS: BASOPHILS % (AUTO) 0.3 % (0.0-2.0); EOSINOPHILS % (AUTO) 0.7 % (0.0-6.0); HEMATOCRIT 39 % (39-51); LYMPHOCYTES # (AUTO) 1.7 K/uL (0.8-4.8); LYMPHOCYTES % (AUTO) 28.3 % (20.0-44.0); MEAN CORPUSCULAR HEMOGLOBIN 32 PG (26.0-33.0); MEAN CORPUSCULAR HGB CONC 34 g/dl (31.0-36.0); MEAN CORPUSCULAR VOLUME 95 fL (80-96); MONOCYTES # (AUTO) 0.3 K/uL (0.1-1.30); MONOCYTES % (AUTO) 4.9 % (2.0-12.0); NEUTROPHILS % (AUTO) 65.8 % (43.0-81.0); PLATELET COUNT (AUTO) 123 K/uL (150-450); RED BLOOD CELL COUNT(AUTO) 4.06 MIL/uL (4.5-6.0); WHITE BLOOD COUNT (AUTO) 6.1 K/uL (4.3-11.0)
[2023-05-02] MEDS ORDERED: ONDANSETRON HCL/PF 4 MG/2 ML VIAL IVP PRN (16:30)
[2023-05-02] MEDS ORDERED: Z GUARD REMEDY 4 OZ OINT TP PRN (16:30)
[2023-05-02] MEDS ORDERED: HYOSCYAMINE SULFATE 0.125 MG TAB.SUBL SL PRN (16:30)
[2023-05-02] MEDS ORDERED: ACETAMINOPHEN 325 MG TABLET PO PRN (16:30)
[2023-05-02] MEDS ORDERED: BISACODYL SUPP (10 MG) 10 MG/SUPP.RECT SUPP.RECT RC PRN (16:30)
[2023-05-02] MEDS ORDERED: PROCHLORPERAZINE MALEATE SUPP 25 MG/SUPP.RECT SUPP.RECT RC PRN (18:00)
[2023-05-02 18:30] VITALS: BP 109/84; TEMP 98.1; O2SAT 96
[2023-05-02] MEDS: DIVALPROEX SODIUM 125 MG CAP.SPRINK GT SCH (19:00)
[2023-05-02] MEDS: OLANZAPINE 5 MG TABLET GT SCH (19:00)
[2023-05-02] MEDS: CARBAMAZEPINE 200 MG TABLET GT SCH (19:01)
[2023-05-02] MEDS: IV D5/0.45 NACL 1,000 ML IV PRN (20:50)
[2023-05-02 21:01] VITALS: BP 91/68; TEMP 98.2; O2SAT 96
[2023-05-02] MEDS: ATORVASTATIN 10 MG TABLET GT SCH (22:08)
[2023-05-03 06:59] LABS: BASOPHILS % (AUTO) 0.3 % (0.0-2.0); EOSINOPHILS # (AUTO) 0.1 K/uL (0.0-0.7); EOSINOPHILS % (AUTO) 1.2 % (0.0-6.0); HEMATOCRIT 37 % (39-51); HEMOGLOBIN 12.5 g/dL (13.5-17.5); LYMPHOCYTES # (AUTO) 1.9 K/uL (0.8-4.8); LYMPHOCYTES % (AUTO) 37.2 % (20.0-44.0); MEAN CORPUSCULAR HEMOGLOBIN 32 PG (26.0-33.0); MEAN CORPUSCULAR HGB CONC 34 g/dl (31.0-36.0); MEAN CORPUSCULAR VOLUME 94 fL (80-96); MONOCYTES # (AUTO) 0.4 K/uL (0.1-1.30); MONOCYTES % (AUTO) 7.9 % (2.0-12.0); NEUTROPHILS # (AUTO) 2.8 K/uL (1.8-8.9); NEUTROPHILS % (AUTO) 53.4 % (43.0-81.0); PLATELET COUNT (AUTO) 120 K/uL (150-450); RED BLOOD CELL COUNT(AUTO) 3.88 MIL/uL (4.5-6.0); RED CELL DISTRIBUTION WIDTH 12.9 % (11.5-15.0); WHITE BLOOD COUNT (AUTO) 5.2 K/uL (4.3-11.0)
[2023-05-03 07:22] LABS: ALBUMIN 3.6 g/dL (3.4-5.0); BILIRUBIN,TOTAL 0.4 mg/dL (0.2-1.0); CALCIUM, SERUM 8.8 mg/dL (8.5-10.1); CREATININE 0.7 mg/dL (0.6-1.3); PHOSPHORUS 2.7 mg/dL (2.5-4.9); TOTAL PROTEIN, SERUM 6.8 g/dL (6.4-8.2)
[2023-05-03 07:26] LABS: POTASSIUM 2.8 mmol/L (3.5-5.1)
[2023-05-03 08:00] VITALS: BP 103/76; TEMP 98.4; O2SAT 100
[2023-05-03] MEDS: POTASSIUM CL. PREMIX PERIPHER. 50 ML IV SCH ×4 (08:16→11:38)
[2023-05-03] MEDS: DIVALPROEX SODIUM 125 MG CAP.SPRINK GT SCH ×3 (08:48→16:24)
[2023-05-03] MEDS: CARBAMAZEPINE 200 MG TABLET GT SCH ×2 (08:48→16:24)
[2023-05-03] MEDS: OLANZAPINE 5 MG TABLET GT SCH ×2 (08:48→16:23)
[2023-05-03] MEDS: IV D5/0.45 NACL 1,000 ML IV PRN (16:56)
[2023-05-03 20:00] VITALS: BP 102/75; TEMP 97.9; O2SAT 96
[2023-05-03] MEDS: ATORVASTATIN 10 MG TABLET GT SCH (21:40)
[2023-05-04] VITALS: BP 101/76; TEMP 97; O2SAT 97
[2023-05-04 04:00] VITALS: BP 109/75; TEMP 97.7; O2SAT 98
[2023-05-04] MEDS: IV D5/0.45 NACL 1,000 ML IV PRN ×2 (06:49→20:39)
[2023-05-04 08:00] VITALS: BP 104/68; TEMP 98.2; O2SAT 98
[2023-05-04 09:27] LABS: CALCIUM, SERUM 8.6 mg/dL (8.5-10.1); CREATININE 0.6 mg/dL (0.6-1.3); POTASSIUM 3.5 mmol/L (3.5-5.1)
[2023-05-04] MEDS: CARBAMAZEPINE 200 MG TABLET GT SCH (10:57)
[2023-05-04] MEDS: DIVALPROEX SODIUM 125 MG CAP.SPRINK GT SCH ×2 (10:57→14:45)
[2023-05-04] MEDS: OLANZAPINE 5 MG TABLET GT SCH (10:57)
[2023-05-04 16:00] VITALS: BP 107/72; TEMP 98.2; O2SAT 98
[2023-05-04] MEDS ORDERED: ATORVASTATIN 10 MG TABLET PO SCH (16:13)
[2023-05-04] MEDS: CARBAMAZEPINE 200 MG TABLET PO SCH (17:02)
[2023-05-04] MEDS: OLANZAPINE 5 MG TABLET PO SCH (17:02)
[2023-05-04] MEDS: DIVALPROEX SODIUM 125 MG CAP.SPRINK PO SCH (17:55)
[2023-05-04 20:00] VITALS: BP 96/67; TEMP 97.3; O2SAT 97
[2023-05-05 04:46] VITALS: BP 94/66; TEMP 97.8; O2SAT 96
[2023-05-05 07:00] VITALS: BP 104/69; TEMP 97.9; O2SAT 98
[2023-05-05] MEDS: CARBAMAZEPINE 200 MG TABLET PO SCH (08:58)
[2023-05-05] MEDS: OLANZAPINE 5 MG TABLET PO SCH (08:58)
[2023-05-05] MEDS: DIVALPROEX SODIUM 125 MG CAP.SPRINK PO SCH ×2 (08:58→12:46)
[2023-05-05 12:00] VITALS: BP 106/73; TEMP 97.5; O2SAT 96
== END 2023-05-05 16:47 | DRG 394 ==
LOC: ER 12:35 → MED 17:05 → TELE 05-03 15:40
PROVIDERS: ADMIT Internal Medicine; ATTEND Internal Medicine
DX: K94.23 Gastrostomy malfunction (principal); E87.0 Hyperosmolality and hypernatremia; G93.49 Other encephalopathy; R13.10 Dysphagia, unspecified; G40.909 Epilepsy, unspecified, not intractable, without status epilepticus; E86.0 Dehydration; Z87.820 Personal history of traumatic brain injury; Z79.899 Other long term (current) drug therapy; E78.5 Hyperlipidemia, unspecified; D64.9 Anemia, unspecified; F39 Unspecified mood [affective] disorder; I48.91 Unspecified atrial fibrillation; E87.6 Hypokalemia; K94.29 Other complications of gastrostomy; Y84.9 Medical procedure, unspecified as the cause of abnormal reaction of the patient, or of later complication, without mention of misadventure at the time of the procedure; Y92.9 Unspecified place or not applicable; Z91.199 Patient's noncompliance with other medical treatment and regimen due to unspecified reason
CPT/HCPCS: 36415; 74230-TC; 80048-TC; 80053-TC; 83735-TC; 84100-TC; 85025-TC; 92526; 92611-TC; A4223; G0378; J3480; J3490